=== PATIENT | female | born 1930 | race Caucasian/White ===

== ENCOUNTER 2019-11-03 19:35 | Inpatient (IN) | payer MEDICARE, OTHER ==
[~2019-11-03] VITALS: Ht 160 cm; Wt 97.5 kg
--- NOTE | 2019-11-03 19:40 | NUR ---
PT [id number] FROM HOME C/O SOB. PER RA, FAMILY NOTICED O2 SAT 84%,GAVE ALBUTEROL WITH NO RELIEF. RA PLACED PT ON 15L NONREBREATHER, O2 SAT 97%. INITIALLY, PT WAS PLACED ON 4L N/C PT SATTING 97%. PT TACHYPNEIC. PT CONNECTED TO THE EQUINE MANAGER AND POX.
--- NOTE | 2019-11-03 19:43 | NUR ---
CONTACTS: GRANDSON: ERAN, GRANDDAUGHTER: JASON: [phone] DAUGHTER: EQUATORIAL GUINEAN SPEAKING ONLY [phone]
[2019-11-03 20:21] LABS: BASOPHILS % (AUTO) 0.4 % (0.0-2.0); EOSINOPHILS % (AUTO) 0.3 % (0.0-6.0); HEMATOCRIT 34 % (33-45); HEMOGLOBIN 11.1 g/dL (11.5-14.8); LYMPHOCYTES # (AUTO) 0.5 /CMM (0.8-4.8); LYMPHOCYTES % (AUTO) 9.2 % (20.0-44.0); MEAN CORPUSCULAR HGB CONC 33 g/dl (31.0-36.0); MEAN CORPUSCULAR VOLUME 93 fL (82-100); MONOCYTES # (AUTO) 0.7 /CMM (0.1-1.30); MONOCYTES % (AUTO) 14.1 % (2.0-12.0); NEUTROPHILS # (AUTO) 3.8 /CMM (1.8-8.9); PLATELET COUNT (AUTO) 126 /CMM (150-450); RED BLOOD CELL COUNT(AUTO) 3.68 MIL/uL (4.0-5.2)
--- NOTE | 2019-11-03 20:27 | NUR ---
PT SATTING 85% W/ 4 L N/C. PT PLACED ON SIMPLE MASK 15 L. PT SATTING 96%. DR EZEQUIEL CR AWARE.
--- NOTE | 2019-11-03 20:32 | NUR ---
RT AT BEDSIDE FOR ABG
[2019-11-03 20:36] LABS: APPEARANCE,URINE Clear (CLEAR); BILIRUBIN,URINE Negative (NEGATIVE); BLOOD, URINE Negative Ery/uL (NEGATIVE); COLOR,URINE Yellow (YELLOW); KETONES,URINE Negative (NEGATIVE); LEUKOCYTE ESTERASE ,URINE Negative (NEGATIVE); NITRITE, URINE Negative (NEGATIVE); PROTEIN,URINE Negative (NEGATIVE); UGLUCOSE Negative (NEGATIVE); UROBILINOGEN,URINE 0.2 EU/dL (0.2)
[2019-11-03 20:41] LABS: ABG BASE EXCESS 19.7 mmol/L; ABG OXYGEN SATURATION 98.3 % (92.0-98.5); ABG PCO2 109.3 mmHg (35.0-45.0); ABG PH 7.289 (7.350-7.450); ABG PO2 147.8 mmHg (75.0-100.0); AaDO2 307.8 mmHg; COHb 1.1 % (0.5-1.5); MetHb 0.3 % (0.0-1.5); O2Hb 96.9 % (94.0-97.0); SITE, ABG Right Radial
--- NOTE | 2019-11-03 20:49 | NUR ---
CALLED RT FOR BIPAP PER DR. NIEVES'S ORDER
--- NOTE | 2019-11-03 21:01 | NUR ---
RT AT BEDSIDE
[2019-11-03 21:03] LABS: BILIRUBIN,DIRECT 1.1 mg/dL (0.0-0.2); BILIRUBIN,TOTAL 1.6 mg/dL (0.2-1.0)
[2019-11-03 21:04] LABS: ALANINE AMINOTRANSFERASE 18 U/L (12-78); ALBUMIN 2.9 g/dL (3.4-5.0); ALKALINE PHOSPHATASE 118 U/L (46-116); ASPARTATE AMINOTRANSFERASE 42 U/L (15-37); TOTAL PROTEIN, SERUM 7.5 g/dL (6.4-8.2)
[2019-11-03 21:05] LABS: CHLORIDE 81 mmol/L (98-107); POTASSIUM 5.7 mmol/L (3.5-5.1); SODIUM SERUM 124 mmol/L (136-145)
[2019-11-03 21:06] LABS: CALCIUM, SERUM 9.3 mg/dL (8.5-10.1); GLUCOSE 163 mg/dL (74-106); UREA NITROGEN, BLOOD 54 mg/dL (7-18)
[2019-11-03 21:08] LABS: CARBON DIOXIDE 46 mmol/L (21-32)
--- NOTE | 2019-11-03 21:25 | NUR ---
rt placed pt on bipap per md verbal order kari aware. sera s/t 16 20/5 60%. mask fitting well with minimal leak. pt rr increased to 35 at this time. spo2 88%, pt chronic co2 retainer with increased hco3. Addendum: 11/03/19 at 2127 by ODILIA ZHENG RT Amended: Links added.
--- NOTE | 2019-11-03 21:47 | NUR ---
ICU 258
[2019-11-03] MEDS ORDERED: CEFEPIME 1 GM in IV D5W 50 ML IV ONE (22:00)
[2019-11-03] MEDS ORDERED: IV NS 0.9% 500 ML BAG IV ONE (22:00)
[2019-11-03] MEDS ORDERED: CEFEPIME 1 GM VIAL ONE (22:23)
[2019-11-03] MEDS ORDERED: Z GUARD REMEDY 2 OZ OINT TP PRN (23:30)
[2019-11-03] MEDS ORDERED: MAGNESIUM HYDROXIDE 30 ML UDC PO PRN (23:30)
[2019-11-03] MEDS ORDERED: ONDANSETRON HCL/PF 4 MG/2 ML VIAL IVP PRN (23:30)
[2019-11-03] MEDS ORDERED: ACETAMINOPHEN 325 MG TABLET PO PRN (23:30)
[2019-11-04] VITALS (44 sets, daily range): BP systolic 36–181; BP diastolic 17–104
[2019-11-04] MEDS ORDERED: FUROSEMIDE 40 MG/4 ML VIAL IV ONE
[2019-11-04] MEDS ORDERED: OMEP20CA15 GT (00:23)
[2019-11-04] MEDS ORDERED: MEMA10TA GT (00:24)
[2019-11-04] MEDS ORDERED: ISOS20TA8 GT (00:25)
[2019-11-04] MEDS ORDERED: METO25TA6 GT (00:26)
[2019-11-04] MEDS ORDERED: FURO40TA5 GT (00:27)
[2019-11-04] MEDS ORDERED: APIX5TAB GT (00:28)
--- NOTE | 2019-11-04 00:50 | NUR ---
RN NOTE PT TRANSFERRED FROM ER TO ROOM VIA RNEY UNDER ACLS PROTOCOL. PT ON CONTINUOUS BIPAP. RT AT BEDSIDE. PT IS NON VERBAL BUT RESPONSIVE TO VERBAL AND TACTILE STIMULI. PLACED ON BEDSIDE MONITOR SHOWING A FIB. MIDLINE ON RIGHT UPPER ARM PATENT AND FLUSHING WELL. COMPREHENSIVE PHYSICAL ASSESSMENT COMPLETED. CALL LIGHT WITHIN REACH, SAFETY MEASURES IN PLACE, WILL MONITOR PATIENT. Addendum: 11/04/19 at 0130 by ROBBI CORTEZ RN ERROR. MID LINE ON LEFT UPPER ARM.
--- NOTE | 2019-11-04 01:11 | NUR ---
PT TRANSFERRED TO ICU VIA ACLS PROTOCOL
--- NOTE | 2019-11-04 01:45 | NUR ---
RN NOTE ADVANCED DIRECTIVE NOT ON FILE. SPOKE TO DAUGHTER BRYANNA TSANG . WHO STATES SHE WISHES PT TO BE FULL CODE. VERIFIED AND WITNESSED BY SUPERVISOR CUSTOMER SERVICES RENEE.
--- NOTE | 2019-11-04 01:50 | NUR ---
RN NOTE PAGED DNP EMILY REGARDING LOW SODIUM LEVEL.
--- NOTE | 2019-11-04 02:48 | NUR ---
RN NOTES CODY DIAZ CALLED BACK AND INFORMED REGARDING NA 124, NNO. NEW ORDER TO INSERT PAVON AND MEASURE URINE OUTPUT NOTED AND CARRIED OUT ORDER.
--- NOTE | 2019-11-04 03:15 | NUR ---
RN NOTE INSERTED 16FR PAVON CATHETER. PT TOLERATED WELL.
[2019-11-04] MEDS ORDERED: METOPROLOL TARTRATE 25 MG TABLET GT SCH (04:00)
[2019-11-04] MEDS ORDERED: APIXABAN 5 MG TABLET GT SCH (04:00)
[2019-11-04 04:22] LABS: BASOPHILS % (AUTO) 0.2 % (0.0-2.0); HEMATOCRIT 33 % (33-45); HEMOGLOBIN 10.7 g/dL (11.5-14.8); LYMPHOCYTES # (AUTO) 0.5 /CMM (0.8-4.8); LYMPHOCYTES % (AUTO) 6.8 % (20.0-44.0); MEAN CORPUSCULAR HGB CONC 33 g/dl (31.0-36.0); MEAN CORPUSCULAR VOLUME 93 fL (82-100); MONOCYTES # (AUTO) 1.2 /CMM (0.1-1.30); NEUTROPHILS # (AUTO) 6.2 /CMM (1.8-8.9); PLATELET COUNT (AUTO) 109 /CMM (150-450); RED BLOOD CELL COUNT(AUTO) 3.53 MIL/uL (4.0-5.2); WHITE BLOOD COUNT (AUTO) 7.9 K/uL (4.3-11.0)
[2019-11-04 04:33] LABS: ALBUMIN 2.7 g/dL (3.4-5.0); BILIRUBIN,TOTAL 1.8 mg/dL (0.2-1.0); CALCIUM, SERUM 8.7 mg/dL (8.5-10.1); MAGNESIUM 2.7 mg/dL (1.8-2.4); PHOSPHORUS 4.5 mg/dL (2.5-4.9); POTASSIUM 4.7 mmol/L (3.5-5.1); TOTAL PROTEIN, SERUM 6.8 g/dL (6.4-8.2)
[2019-11-04 04:40] LABS: THYROID STIMULATING HORMONE 2.259 uIU/mL (0.358-3.74)
--- NOTE | 2019-11-04 04:58 | NUR ---
RN NOTE RECEIVED ALERT FOR CRITICAL LAB VALUE CO2 48. INCREASED FROM 46. NOTIFIED DNP EMILY.
--- NOTE | 2019-11-04 05:04 | NUR ---
RN NOTE DNP NOTIFIED OF CO2 RESULT. PROTOCL INITIATED. PT STILL ON CONTINUOUS BIPAP. RT AT BEDSIDE.
[2019-11-04 05:15] LABS: LYMPHOCYTES % (MANUAL) 5 % (16-48); NEUTROPHILS % (MANUAL) 88 (42-76)
[2019-11-04 05:16] LABS: MONOCYTES % (MANUAL) 7 % (0-11.0)
[2019-11-04 05:17] LABS: ABG BASE EXCESS 20.4 mmol/L; ABG OXYGEN SATURATION 95.4 % (92.0-98.5); ABG PCO2 74.9 mmHg (35.0-45.0); ABG PH 7.429 (7.350-7.450); ABG PO2 76.9 mmHg (75.0-100.0); AaDO2 414.9 mmHg; COHb 0.9 % (0.5-1.5); MetHb 0.3 % (0.0-1.5); O2Hb 94.3 % (94.0-97.0); SITE, ABG Left Brachial
--- NOTE | 2019-11-04 05:18 | NUR ---
ABG DONE. NOTIFIED RN WITH THE RESULT.
--- NOTE | 2019-11-04 07:01 | NUR ---
RN CLOSING NOTE PATIENT IN BED IN SEMI BROWN'S POSITION WITH CONTINUOUS BIPAP ORDERED. SETTINGS: 20/5, RATE 16, FI02 80%. MD AWARE OF CURRENT ABG RESULT WITH NO NEW ORDERS. TELE MONITOR SHOWS A FIB WITH HEART RATE 73. PAVON CATHETER IN PLACE DRAINING CLEAR YELLOW URINE. MAINTAINED NPO STATUS. GT CLAMPED. VOLODYMYR MIDLINE AND RIGHT THUMB 22G IV PATENT WITHOUT SIGNS OF COMPLICATIONS AT SITES. VITAL SIGNS WNL, CALL LIGHT WITHIN REACH, SAFETY MEASURES IN PLACE, WILL ENDORSE TO MORNING RN FOR CONTINUATION OF CARE.
--- NOTE | 2019-11-04 07:50 | NUR ---
RN OPENING NOTE: RECEIVED PATIENT IN BED THIS MORNING. PATIENT ONLY OPENED EYES TO VIGOROUS TACTILE STIMULI, UNABLE TO ANSWER QUESTIONS. PATIENT IS ON CONTINUOUS BIPAP, TOLERATING SETTINGS WELL, NO SIGNS OF ACUTE RESPIRATORY DISTRESS NOTED. BEDSIDE MONITOR SHOWS CONTROLLED AFIB IN THE 70S. NO SIGNS OF ACUTE DISTRESS NOTED AT THIS TIME. EDEMA NOTED ON BUE AND BLE. #22 LEFT THUMB, MIDLINE AT PHIL, C/D/I, FLUSHING WELL, NO SIGNS OF COMPLICATIONS NOTED. PAVON CATHETER, DRAINING CLEAR YELLOW URINE. GT CLAMPED D/T NPO STATUS. SAFETY MEASURES IMPLEMENTED, BED IN LOWEST POSITION, LOCKED, CALL LIGHT WITHIN REACH. WILL CONTINUE TO MONITOR PATIENT FOR CHANGES.
--- NOTE | 2019-11-04 08:25 | NUR ---
PER ARIANE ORNELAS TO GIVE MEDS VIA GT.
[2019-11-04] MEDS: PANTOPRAZOLE 40 MG VIAL IV SCH (08:28)
[2019-11-04] MEDS: ISOSORBIDE DINITRATE (20MG) 20 MG TABLET GT SCH ×2 (08:28→17:18)
--- NOTE | 2019-11-04 09:30 | NUR ---
RT PATIENT WAS ORALLY INTUBATED BY ANESTHESIA WITH A 7.5 ETT SECURED AT 23CM AT THE LIP. PATIENT PLACED ON [facility] VENT WITH SETTINGS SET BY DR LUO. AC 22, VT 450, 100% +5. PEAK PRESSURES NOTED TO BE ELEVATED. DR LUO AWARE. AMBU BAG AT HOB. Addendum: 11/04/19 at 1203 by PORTIA WALLACE RT Amended: Links added.
[2019-11-04] MEDS ORDERED: NOREPINEPHRINE 8 MG in IV NS 0.9% 242 ML IV PRN (10:30)
[2019-11-04] MEDS ORDERED: IPRATROPIUM/ALBUTEROL INHALER IH ONE (10:30)
[2019-11-04] MEDS ORDERED: EPHEDRINE SULFATE IV 50MG VIAL ONE (10:32)
[2019-11-04] MEDS ORDERED: EPINEPHRINE (1:1000) 1 MG/ML AMPUL ONE (10:42)
[2019-11-04] MEDS ORDERED: EPHEDRINE SULFATE IV 50MG VIAL IV ONE ×2 (11:00→12:21)
[2019-11-04] MEDS ORDERED: DEXAMETHASONE SOD PHOSPHATE 4 MG/ML VIAL IV ONE (11:30)
[2019-11-04] MEDS: ALBUTEROL HALF STRENGTH 1.25 MG/3 ML VIAL.NEB NEB SCH ×2 (11:56→11:57)
[2019-11-04] MEDS ORDERED: IPRATROPIUM/ALBUTEROL INHALER IH SCH (12:00)
[2019-11-04] MEDS: CEFEPIME 2 GM in IV D5W 100 ML IV SCH ×2 (12:13→23:26)
[2019-11-04] MEDS ORDERED: ATROPINE SULFATE 1 MG/10 ML DISP.SYRIN IV ONE (12:21)
[2019-11-04] MEDS ORDERED: ETOMIDATE 2 MG/ML VIAL IV ONE (12:21)
[2019-11-04] MEDS ORDERED: ROCURONIUM BROMIDE 50 MG/5 ML IV ONE (12:21)
[2019-11-04] MEDS: PROPOFOL 100 ML IV PRN ×2 (12:33→17:26)
[2019-11-04 12:43] LABS: ABG BASE EXCESS 13.5 mmol/L; ABG OXYGEN SATURATION 91.4 % (92.0-98.5); ABG PCO2 45.6 mmHg (35.0-45.0); ABG PH 7.535 (7.350-7.450); ABG PO2 55.4 mmHg (75.0-100.0); COHb 0.5 % (0.5-1.5); MetHb 0.3 % (0.0-1.5); O2Hb 90.7 % (94.0-97.0); SITE, ABG A-Line
--- NOTE | 2019-11-04 13:15 | NUR ---
GAVE REPORT TO MARIIA SANTOS FOR CONTINUITY OF CARE.
[2019-11-04] MEDS ORDERED: ALBUTEROL SULFATE INH 18 GM HFA.AER.AD IH PRN (14:00)
[2019-11-04 15:10] LABS: ABG OXYGEN SATURATION 90.3 % (92.0-98.5); ABG PCO2 40.2 mmHg (35.0-45.0); ABG PO2 50.2 mmHg (75.0-100.0); AaDO2 622.6 mmHg; COHb 0.6 % (0.5-1.5); MetHb 0.2 % (0.0-1.5); O2Hb 89.6 % (94.0-97.0); SITE, ABG A-Line
--- NOTE | 2019-11-04 15:30 | NUR ---
RN NOTES FAXED AUTHORIZATION FOR RELEASE OF INFORMATION TO [facility] AND [facility]. OBTAINED CONSENT FOR THE RELEASE OF INFORMATION FROM ERAN (SOLO) CONSENT VERIFIED WITH MARIIA FORTE
[2019-11-04] MEDS: methylPREDNISolone SOD SUCC 40 MG/ML VIAL IV SCH ×2 (15:37→21:01)
--- NOTE | 2019-11-04 19:40 | NUR ---
RN NOTES RECEIVED PATIENT WITH ETT AND 7.5 AND 23CM POSITION AT 23 CM AT LIPLINE. WITH VENT SETTING AC 22 TV 400 FIO2 100% AND PEEP 12. TOLERATED WELL SATURATION 100%. SUCTION WITH THICK YELLOW WITH BLOODY SECRETION TELE MONITOR REVEALS AFIB WITH BBB HR 104. NO FACIAL COMPLAIN OF PAIN. AFEBRILE. WITH MIAH CONNECTED ON RIGHT ARTERIAL CALIBRATED AND LEVELLED. PT IS SEDATED WITH DIPRIVAN. NO PRESSOR AT THIS TIME. WITH GT CLAMPED. IV SITE ON VOLODYMYR MIDLINE RIGHT THUMB G 22 AND PHIL TLC. PROPOFOL @ 20 MCG/KG/MIN TOLERATED WELL. PATIENT HAS PAVON CATH DRAINED VIA GRAVITY KEPT OFF FROM THE FLOOR. PEDAL PULSES WEAK RADIAL PULSE PALPABLE. WILL CLOSELY MONITOR.
[2019-11-04 20:04] LABS: ABG BASE EXCESS 11.7 mmol/L; ABG OXYGEN SATURATION 96.1 % (92.0-98.5); ABG PH 7.603 (7.350-7.450); ABG PO2 76.4 mmHg (75.0-100.0); AaDO2 601.6 mmHg; COHb 0.2 % (0.5-1.5); MetHb 0.4 % (0.0-1.5); O2Hb 95.5 % (94.0-97.0); PEEP,BG 12 cm H2O; SITE, ABG A-Line
--- NOTE | 2019-11-04 20:13 | NUR ---
ABG DONE. NOTIFIED RN WITH THE RESULT.
--- NOTE | 2019-11-04 21:25 | NUR ---
RN NOTES ABG RESULT TO DR. CEJA ([facility]) PH - [phone] PCO3 - 35 PO2 - 76.4 HCO3 - 33.8 NEW ORDER RECEIVED TO CHANGE AC TO 18 NOTED AND CARRIED OUT ORDER. RT MADE AWARE AND CHANGED VENT SETTING.
--- NOTE | 2019-11-04 21:26 | NUR ---
CHANGED RATE TO [address] CEJA. NOTIFIED RN.
[2019-11-04] MEDS ORDERED: CEFEPIME 1 GM in IV NS 0.9% 50 ML IV SCH (22:00)
[2019-11-05] VITALS (33 sets, daily range): BP systolic 89–163; BP diastolic 44–134
[2019-11-05] MEDS: PROPOFOL 100 ML IV PRN ×2 (03:26→15:11)
[2019-11-05 04:35] LABS: BASOPHILS % (AUTO) 0.1 % (0.0-2.0); HEMATOCRIT 31 % (33-45); HEMOGLOBIN 10.5 g/dL (11.5-14.8); LYMPHOCYTES # (AUTO) 0.2 /CMM (0.8-4.8); LYMPHOCYTES % (AUTO) 2.7 % (20.0-44.0); MEAN CORPUSCULAR HGB CONC 34 g/dl (31.0-36.0); MEAN CORPUSCULAR VOLUME 91 fL (82-100); MONOCYTES # (AUTO) 0.4 /CMM (0.1-1.30); MONOCYTES % (AUTO) 4.9 % (2.0-12.0); NEUTROPHILS # (AUTO) 8.3 /CMM (1.8-8.9); NEUTROPHILS % (AUTO) 92.3 % (43.0-81.0); PLATELET COUNT (AUTO) 115 /CMM (150-450); RED BLOOD CELL COUNT(AUTO) 3.41 MIL/uL (4.0-5.2)
[2019-11-05 05:04] LABS: ALANINE AMINOTRANSFERASE 18 U/L (12-78); ALBUMIN 2.4 g/dL (3.4-5.0); ALKALINE PHOSPHATASE 90 U/L (46-116); ASPARTATE AMINOTRANSFERASE 46 U/L (15-37); BILIRUBIN,TOTAL 2.6 mg/dL (0.2-1.0); CHLORIDE 82 mmol/L (98-107); CREATININE 1.4 mg/dL (0.6-1.3); GLUCOSE 173 mg/dL (74-106); MAGNESIUM 2.9 mg/dL (1.8-2.4); POTASSIUM 4.7 mmol/L (3.5-5.1); SODIUM SERUM 127 mmol/L (136-145); TOTAL PROTEIN, SERUM 6.3 g/dL (6.4-8.2); UREA NITROGEN, BLOOD 61 mg/dL (7-18)
[2019-11-05 05:13] LABS: CARBON DIOXIDE 42 mmol/L (21-32)
[2019-11-05 05:19] LABS: CREATINE KINASE, TOTAL 70 U/L (26-192); THYROID STIMULATING HORMONE 1.153 uIU/mL (0.358-3.74); URIC ACID 11.2 mg/dL (2.6-7.2)
[2019-11-05] MEDS: methylPREDNISolone SOD SUCC 40 MG/ML VIAL IV SCH ×3 (05:47→21:40)
--- NOTE | 2019-11-05 06:58 | NUR ---
RN NOTES PATIENT REMAINED SEDATED WITH DIPRIVAN. AFEBRILE. ETT AND VENT SETTING TOLERATED WELL. NO ACUTE RESPIRATORY DISTRESS. SATURATION BETWEEN 98-100%. SUCTION FREQUENTLY WITH THICK BLOODY SECRETION. TELE MONITOR REVEALS AFIB WITH BBB AND PVC'S. GT CLAMPED INTACT AND PATENT WITH SMALL AMT,OF LIGHT GREENISH COLOR RESIDUAL. VSS. IV SITE ON VOLODYMYR MIDLINE AND PHIL PICC LINE ARE INTACT AND PATENT. RT RADIAL ARTERY FOR A- LINE. CALIBRATED AND LEVELED. CONTINUE WITH PROPOFOL TITRATED ORDERED. BED BATH DONE AND TOLERATED WELL. T/R Q2H AND PRN. KEPT PT CLEAN AND DRY. WILL CONT. TO POC. TROPONIN 1.117 AND CO2 [address] WATTS NNO.
--- NOTE | 2019-11-05 08:04 | NUR ---
COAL WHEELER OPENING NOTES RECEIVED PT IN BED.OPEN EYES. LEGALLY BLIND. ALERTX4.FC 150 CC.BED PT IS IN BI-PAP FIO85 RATE 12. RUNNING DRIP [id number] MCQ. BED IS IN LOWEST POSITION. CALL LIGHT WITHIN REACH. SAFETY MEASUREMENTS ARE IMPLEMENTED. RAILS UP X2. WILL CONTINUE TO MONITOR. Addendum: 11/05/19 at 1040 by SAÚL ESCOBAR RN AWAKE .ALERT AND ORIENTED X0
--- NOTE | 2019-11-05 08:13 | NUR ---
WOUND CARE CONSULT: REVIEWED CHART, NURSING DOCUMENTATION AND PHOTOS WHICH SHOW CALLUSED HEELS, SKIN DISCOLORATION AND RASH TO PERINEUM, BUTTOCK AND ABDOMINAL/GROIN FOLDS, PRESENT ON ADMISSION. RECOMMENDATIONS MADE FOR SKIN PROTECTION AND SKIN CARE. DISCUSSED WITH NURSING STAFF. FIRST STEP LOW AIRLOSS MATTRESS ON ORDER. WILL SEE PRN. IN AGREEMENT WITH PLAN OF CARE.
--- NOTE | 2019-11-05 08:41 | NUR ---
HONING MACHINE SET UP OPERATOR TOOL NOTES PATIENT IS HAVING FACIAL GRIMACING AND FOCAL SEIZURE. PER DR LUO GIVE PATIENT 1 MG ATIVAN IV PUSH ONCE.
[2019-11-05] MEDS: ISOSORBIDE DINITRATE (20MG) 20 MG TABLET GT SCH ×2 (08:55→16:21)
[2019-11-05 08:58] LABS: ABG BASE EXCESS 16.7 mmol/L; ABG PH 7.588 (7.350-7.450); ABG PO2 91.7 mmHg (75.0-100.0); AaDO2 578.3 mmHg; COHb 0.5 % (0.5-1.5); MetHb 0.2 % (0.0-1.5); O2Hb 97.3 % (94.0-97.0); PEEP,BG 12 cm H2O; SITE, ABG A-Line; VT, ABG 400 mL
[2019-11-05] MEDS ORDERED: LORAZEPAM INJ 2 MG/ML VIAL IV ONE (09:00)
[2019-11-05] MEDS: PANTOPRAZOLE 40 MG VIAL IV SCH (09:14)
[2019-11-05] MEDS: CLOTRIMAZOLE 1% 15 GM TUBE TP SCH ×2 (09:15→17:35)
--- NOTE | 2019-11-05 09:58 | NUR ---
MOWER MECHANIC NOTES REPORT GIVEN TO ELISABETH CHIANG FOR BRENDA.
[2019-11-05] MEDS ORDERED: LORAZEPAM INJ 2 MG/ML VIAL IVP PRN (10:00)
--- NOTE | 2019-11-05 10:00 | NUR ---
RN NOTES RECEIVED PT ON BED, INTUBATED, TOLERATING CURRENT VENT SETTING WELL, O2 SAT IN HIGH 90'S , SEDATED, ON DIPRIVAN AT 10MCG/KG/ MIN , OPENS EYES AT TIMES, ON TELE A.FIB WITH BBB, HR IN 90'S , PAVON DRINING TO GRAVITY, GT CLAMPED , L UPPER ARM MIDLINE AND RIGHT UPPER ARM PICC LINE SITE CLEAN, DRY AND INTACT, A-LINE SITE INTACT, SR UP x3, CALL LIGHT WITHIN EASY REACH, BED LOCKED AND IN LOWEST POSITION, SR UP x3, CALL LIGHT WITHIN EASY REACH, CONTINUE TO MONITOR .
--- NOTE | 2019-11-05 10:00 | NUR ---
RN NOTES FACIAL TWITCHING NOTED, MD AWARE PER MORNING REPORT .
--- NOTE | 2019-11-05 10:05 | NUR ---
ADOBE LAYER NOTES RN PERFORMED COVID TEST . COVID TEST IS PENDING
--- NOTE | 2019-11-05 10:06 | NUR ---
RT NOTE VENT CHANGES MADE POST ABG PER DR FALLEG RATE DOWN TO 12 AND FIO2 TITRATED DOWN TO 85%. PT TOLERATING WELL. WILL CONTINUE TO MONITOR. Addendum: 11/05/19 at 1007 by ROBBI GONZALES RT Amended: Links added.
[2019-11-05] MEDS: CEFEPIME 2 GM in IV D5W 100 ML IV SCH ×2 (10:50→23:08)
[2019-11-05] MEDS: IV NS 0.9% 1,000 ML IV PRN ×2 (11:08→20:03)
[2019-11-05 14:03] LABS: APPEARANCE,URINE SL CLOUDY (CLEAR); BILIRUBIN,URINE NEGATIVE (NEGATIVE); BLOOD, URINE NEGATIVE Ery/uL (NEGATIVE); COLOR,URINE DARK YELLO (YELLOW); KETONES,URINE TRACE (NEGATIVE); LEUKOCYTE ESTERASE ,URINE TRACE (NEGATIVE); NITRITE, URINE NEGATIVE (NEGATIVE); PROTEIN,URINE TRACE mg/dl (NEGATIVE); UGLUCOSE NEGATIVE (NEGATIVE); UROBILINOGEN,URINE 0.2 EU/dL (0.2)
[2019-11-05 14:06] LABS: OSMOLALITY,URINE 357 mOS/kg (340-1090)
[2019-11-05 14:10] LABS: CREATININE, URINE 42.8 MG/DL (30.0-125.0); URINE SODIUM, RANDOM < 5 mmol/l (40-220); URINE TOTAL PROTEIN 27.2 mg/dL (0-11.9)
--- NOTE | 2019-11-05 14:35 | NUR ---
RN NOTES VSS STABLE , PROPOFOL AT 5MCG/KG/MIN RUNNING , ORAL AND ET SUCTIONING DONE , CONTINUE TO MONITOR .
[2019-11-05 14:45] LABS: BACTERIA,URINE 1+ /HPF (None Seen); RBC,URINE 0-2 /HPF (0-2); SQUAMOUS EPITHELIAL CELL,UR Few /HPF (None Seen)
[2019-11-05 14:46] LABS: YEAST,URINE Moderate /HPF (None Seen)
[2019-11-05 14:52] LABS: EOSINOPHIL,URINE None Seen
--- NOTE | 2019-11-05 16:00 | NUR ---
RN NOTES EEG DONE BY OPERATIONS TECH, PT STABLE , CONTINUE TO MONITOR.
--- NOTE | 2019-11-05 18:44 | NUR ---
RN NOTES PT REMAINS INTUBATED, AND SEDATED, ON DIPRIVAN AT 5MCG/KG/MIN, TOLERATING CURRENT VENT SETTING WELL, O2 SAT IN HIGH 90'S , TOTAL URINE OUT PUT 150CC ON THIS SHIFT, DR ZACH MARK, PT ON NS AT 125CC/HR , A-LINE INTACT, SR UP x3, CALL LIGHT WITHIN EASY REACH, BED LOCKED AND IN LOWEST POSITION, WILL ENDORSE TO SERVICE RESTORER EMERGENCY NURSE FOR CONTINUITY OF CARE.
--- NOTE | 2019-11-05 20:00 | NUR ---
RN NOTES PATIENT IS ORALLY INTUBATED WITH ETT 7.5 AND POSITION @ 23 CM LIPLINE. WITH VENT SETTING AC 12 TV 400 AND FIO2 85% PEEP 12. ABLE TO OPEN EYES NOT FOLLOWING COMMAND. PATIENT STILL IN LOW DOSE OF SEDATION DIPRIVAN @ 5 MCG/KG/MIN. NO PRESSORS AT THIS TIME VSS. TELE MONITOR WAS AFIBW/BBB AND PVC'S. GT CLAMPED PATENCY CHECKED, INTACT AND PATENT WITH MINIMAL RESIDUAL. IV SITE ON VOLODYMYR MIDLINE AND PHIL TLC AND RIGHT RADIAL CONNECTED IN A-LINE CALIBRATED AND LEVELED. . PT STILL PENDING FOR COVID RESULT. STRICTLY ON ISOLATION. KEPT PT CLEAN AND DRY WILL CONTINUE TO MONITOR.
--- NOTE | 2019-11-05 20:16 | NUR ---
RT NOTE RECEIVED PT INTUBATED WITH 7.5 ETT SECURED AT 23CM AT THE LIP. PATIENT HAS SOME BLOODY SECRETIONS WHEN SUCTIONED, MINIMAL. AMBU BAG AT [facility]. ALARMS ON AND AUDIBLE. VENT PLUGGED INTO RED OUTLET. WILL CONTINUE TO MONITOR PT T/O SHIFT. Addendum: 11/05/19 at 2016 by MICHAEL ARROYO RT Amended: Links added.
[2019-11-06] VITALS (24 sets, daily range): BP systolic 105–138; BP diastolic 51–86
[2019-11-06] MEDS: PROPOFOL 100 ML IV PRN (03:30)
[2019-11-06 04:10] LABS: BASOPHILS % (AUTO) 0.1 % (0.0-2.0); HEMATOCRIT 31 % (33-45); HEMOGLOBIN 10.2 g/dL (11.5-14.8); LYMPHOCYTES # (AUTO) 0.4 /CMM (0.8-4.8); LYMPHOCYTES % (AUTO) 6.2 % (20.0-44.0); MEAN CORPUSCULAR HGB CONC 33 g/dl (31.0-36.0); MEAN CORPUSCULAR VOLUME 92 fL (82-100); MONOCYTES # (AUTO) 0.4 /CMM (0.1-1.30); NEUTROPHILS # (AUTO) 6.3 /CMM (1.8-8.9); NEUTROPHILS % (AUTO) 88.7 % (43.0-81.0); PLATELET COUNT (AUTO) 106 /CMM (150-450); RED BLOOD CELL COUNT(AUTO) 3.35 MIL/uL (4.0-5.2); WHITE BLOOD COUNT (AUTO) 7.1 K/uL (4.3-11.0)
[2019-11-06 04:24] LABS: CREATINE KINASE, TOTAL 58 U/L (26-192)
[2019-11-06 04:28] LABS: ALANINE AMINOTRANSFERASE 19 U/L (12-78); ALBUMIN 2.4 g/dL (3.4-5.0); ALKALINE PHOSPHATASE 86 U/L (46-116); ASPARTATE AMINOTRANSFERASE 51 U/L (15-37); BILIRUBIN,TOTAL 2.5 mg/dL (0.2-1.0); CALCIUM, SERUM 8.9 mg/dL (8.5-10.1); CHLORIDE 87 mmol/L (98-107); CREATININE 1.5 mg/dL (0.6-1.3); GLUCOSE 159 mg/dL (74-106); MAGNESIUM 2.9 mg/dL (1.8-2.4); PHOSPHORUS 4.3 mg/dL (2.5-4.9); POTASSIUM 4.8 mmol/L (3.5-5.1); SODIUM SERUM 128 mmol/L (136-145); TOTAL PROTEIN, SERUM 6.3 g/dL (6.4-8.2); UREA NITROGEN, BLOOD 63 mg/dL (7-18)
[2019-11-06 04:40] LABS: CARBON DIOXIDE 40 mmol/L (21-32)
[2019-11-06] MEDS: IV NS 0.9% 1,000 ML IV PRN ×2 (04:40→15:49)
[2019-11-06] MEDS: methylPREDNISolone SOD SUCC 40 MG/ML VIAL IV SCH ×3 (05:47→21:01)
--- NOTE | 2019-11-06 06:00 | NUR ---
RN NOTES TOÑITO FROM LAB CALLED AND REPORTED THAT PATIENT IS NEGATIVE FOR COVID 19. CHARGE NURSE MADE AWARE AND
--- NOTE | 2019-11-06 07:00 | NUR ---
RN NOTES RECEIVED [T ON BED, ORALLY INTUBATED, DOES NOT FOLLOW COMMAND, SEDATED, EYES OPEN AT TIMES , WITH ETT 7.5 AND POSITION @ 23 CM LIP LINE. WITH VENT SETTING AC 12 TV 400 AND FIO2 60% PEEP 12. ON DIPRIVAN @ 5 MCG/KG/MIN. ON TELE, A.FIB W/BBB AND PVC'S. HR IN 80'S , GT CLAMPED PATENCY CHECKED, INTACT AND PATENT WITH MINIMAL RESIDUAL. VOLODYMYR MIDLINE AND PHIL TLC PICC LINE SITES CLEAN, DRY AND INTACT, AND RIGHT RADIAL CONNECTED IN A-LINE CALIBRATED AND LEVELED. SR UP x3, CALL LIGHT WITHIN EASY REACH, BED LOCKED AND IN LOWEST POSITION, KEPT PT CLEAN AND DRY, WILL CONTINUE TO MONITOR.
--- NOTE | 2019-11-06 07:00 | NUR ---
RN NOTES PATIENT REMAINED STABLE ON ETT AND VENT SETTING TOLERATED WELL ON FIO2 60% TOLERATED WELL. MUCH LESSER BLOODY THICK SECRETION NOTED DURING SUCTIONING PILY ORAL AND ETT. AFEBRILE. VSS IV SITE INTACT AND PATENT. ART LINE ON RT. RADIAL ZEROED , CALIBRATED AND LEVELED. KEPT PT CLEAN AND DRY. TURNED AND REPOSITIONED MUCH POSSIBLE WHEN GOING TO PATIENT ROOM. ALL MEDICINE ADMINISTERED ORDERED AND TOLERATED WELL. ENDORSED CONTINUITY OF CARE TO AM NURSE.
[2019-11-06 07:52] LABS: ABG BASE EXCESS 13.3 mmol/L; ABG OXYGEN SATURATION 98.7 % (92.0-98.5); ABG PCO2 50.6 mmHg (35.0-45.0); ABG PH 7.496 (7.350-7.450); ABG PO2 150.1 mmHg (75.0-100.0); AaDO2 403.5 mmHg; COHb 0.3 % (0.5-1.5); O2Hb 98.4 % (94.0-97.0); PEEP,BG 12 cm H2O; SITE, ABG A-Line; VT, ABG 400 mL
[2019-11-06] MEDS: PANTOPRAZOLE 40 MG VIAL IV SCH (08:27)
[2019-11-06] MEDS: ISOSORBIDE DINITRATE (20MG) 20 MG TABLET GT SCH ×2 (08:28→16:29)
[2019-11-06] MEDS: CLOTRIMAZOLE 1% 15 GM TUBE TP SCH ×2 (08:28→16:25)
--- NOTE | 2019-11-06 09:17 | NUR ---
RN NOTES DR THOMAS OFFICE NOITFED REGARDING CONSULTATION, SPOKEN TO BENJY AT THE OFFICE .
[2019-11-06] MEDS: APIXABAN 5 MG TABLET GT SCH ×2 (09:28→16:28)
[2019-11-06] MEDS ORDERED: VALPROATE 1,000 MG in IV NS 0.9% 100 ML IV STA (09:47)
[2019-11-06] MEDS: CEFEPIME 2 GM in IV D5W 100 ML IV SCH ×2 (11:29→23:00)
[2019-11-06] MEDS: VALPROATE 500 MG in IV NS 0.9% 100 ML IV SCH ×2 (12:44→21:00)
--- NOTE | 2019-11-06 13:00 | NUR ---
RN NOTES CT SCAN DONE, VSS STABLE , CONTINUE TO MONITOR .
--- NOTE | 2019-11-06 18:21 | NUR ---
RN NOTES PATIENT REMAINED STABLE, STILL INTUBATED AND SEDATED, TOLERAING FIO2 AT 50% WELL, VSS STABLE. ON DIPRIVAN AT10 MCG/KG/MIN, A- LINE , PICC LINE AND MIDLINE SITES CLEAN ,DRY AND INTACT, KEPT PT CLEAN AND DRY. TURNED AND REPOSITIONED , ALL MEDICINE ADMINISTERED ORDERED AND TOLERATED WELL. WILL ENDORSE TO METER TESTER POLYPHASE NURSE FOR CONTINUITY OF CARE.
--- NOTE | 2019-11-06 20:00 | NUR ---
Received patient sedated on Diprivan gtt via PHIL PICC Line.Intubated to mechanical vent on full vent support.Vent settings well tolerated.Hypothermic 94.1.Skin cold to touch.Kept warm with Parish hugger.Afib controlled 80's.Normotensive with Arterial line and NIBP readings .Kept NPO with GT clamped.Maintenance IVF Infusing via VOLODYMYR ML No acute distress noted.Turned and repositioned.Continue monitoring.
[2019-11-06] MEDS: FLUCONAZOLE (100 MG) 100 MG TABLET PO SCH (21:00)
[2019-11-07] VITALS (29 sets, daily range): BP systolic 90–141; BP diastolic 46–98
--- NOTE | 2019-11-07 | NUR ---
Patient remains sedated.VSS.No acute distress noted.Turned and repositioned.
[2019-11-07] MEDS: PROPOFOL 100 ML IV PRN (00:10)
[2019-11-07] MEDS: IV NS 0.9% 1,000 ML IV PRN ×3 (01:21→18:53)
[2019-11-07 04:22] LABS: BASOPHILS % (AUTO) 0.1 % (0.0-2.0); HEMATOCRIT 31 % (33-45); HEMOGLOBIN 10.2 g/dL (11.5-14.8); LYMPHOCYTES # (AUTO) 0.3 /CMM (0.8-4.8); LYMPHOCYTES % (AUTO) 6.6 % (20.0-44.0); MEAN CORPUSCULAR HGB CONC 33 g/dl (31.0-36.0); MEAN CORPUSCULAR VOLUME 91 fL (82-100); MONOCYTES # (AUTO) 0.2 /CMM (0.1-1.30); MONOCYTES % (AUTO) 4.8 % (2.0-12.0); NEUTROPHILS # (AUTO) 4.5 /CMM (1.8-8.9); NEUTROPHILS % (AUTO) 88.5 % (43.0-81.0); PLATELET COUNT (AUTO) 97 /CMM (150-450); RED BLOOD CELL COUNT(AUTO) 3.39 MIL/uL (4.0-5.2); WHITE BLOOD COUNT (AUTO) 5.1 K/uL (4.3-11.0)
[2019-11-07 04:35] LABS: CALCIUM, SERUM 8.9 mg/dL (8.5-10.1); CARBON DIOXIDE 37 mmol/L (21-32); CHLORIDE 87 mmol/L (98-107); CREATININE 1.5 mg/dL (0.6-1.3); GLUCOSE 140 mg/dL (74-106); PHOSPHORUS 4.3 mg/dL (2.5-4.9); POTASSIUM 4.3 mmol/L (3.5-5.1); SODIUM SERUM 129 mmol/L (136-145); UREA NITROGEN, BLOOD 69 mg/dL (7-18)
[2019-11-07] MEDS: methylPREDNISolone SOD SUCC 40 MG/ML VIAL IV SCH ×3 (05:18→20:34)
[2019-11-07] MEDS: VALPROATE 500 MG in IV NS 0.9% 100 ML IV SCH ×3 (05:18→20:33)
[2019-11-07 06:15] LABS: NEUTROPHILS % (MANUAL) 93 (42-76)
[2019-11-07 06:16] LABS: LYMPHOCYTES % (MANUAL) 4 % (16-48); MONOCYTES % (MANUAL) 3 % (0-11.0)
--- NOTE | 2019-11-07 07:25 | NUR ---
Patient resting no significant change noted during the shift.VSS stable.Tolerating vent settings.Personal hygiene rendered.Was turned and repositioned Q 2 hrs.Latest temp 96.5 Parish hugger continuous.No acute distress noted.Report given to day shift for rajeev.
--- NOTE | 2019-11-07 07:40 | NUR ---
ICU/RN PT IS INTUBATED ON THE VENT AC MODE,FIO2-50%,PEEP-10. SAT O2-98%.SEDATED WITH DIPRIVAN .PT HAS PICC LINE ,MIDLINE,AND A-LINE . G-TUBE CLAMPED.F/C DRAINING WITH YELLOW URINE.PT IS OBESE ,GENERALIZED EDEMA PRESENT.T-96.7 .HEATING BLANKET ON.SUCTION PROVIDED.REPOSITION FOR COMFORT.
[2019-11-07] MEDS: PANTOPRAZOLE 40 MG VIAL IV SCH (08:04)
[2019-11-07] MEDS: ISOSORBIDE DINITRATE (20MG) 20 MG TABLET GT SCH ×2 (08:05→16:54)
[2019-11-07] MEDS: CLOTRIMAZOLE 1% 15 GM TUBE TP SCH ×2 (08:06→16:54)
[2019-11-07] MEDS: APIXABAN 5 MG TABLET GT SCH ×2 (08:06→16:55)
--- NOTE | 2019-11-07 08:30 | NUR ---
ICU/RN ABG DONE .MD NOTIFIED.PEEP DECREASED TO 5.SAT O2-97%. DUE MEDS ARE GIVEN ORDERED.
[2019-11-07 08:33] LABS: ABG BASE EXCESS 14.9 mmol/L; ABG PCO2 48.6 mmHg (35.0-45.0); ABG PH 7.527 (7.350-7.450); ABG PO2 104.1 mmHg (75.0-100.0); AaDO2 197.7 mmHg; COHb 0.3 % (0.5-1.5); MetHb 0.3 % (0.0-1.5); O2Hb 97.4 % (94.0-97.0); SITE, ABG A-Line; VENT MODE, BG AC 12 400 +10 50%
[2019-11-07] MEDS ORDERED: DEXTROSE 50%-WATER 50 ML DISP.SYRIN IV PRN (10:00)
[2019-11-07] MEDS ORDERED: GLUCERNA 1.2 1,000 ML BOTTLE NG PRN (10:00)
[2019-11-07] MEDS: CEFEPIME 2 GM in IV D5W 100 ML IV SCH ×2 (10:24→22:35)
[2019-11-07] MEDS: BLOOD SUGAR DIAGNOSTIC 1 EACH STRIP IN SCH ×3 (11:06→23:19)
[2019-11-07] MEDS: INSULIN REGULAR, HUMAN 100 UNIT/ML 3 ML VIAL SQ PRN ×2 (11:30→23:22)
[2019-11-07] MEDS: GLUCERNA 1.2 1,000 ML BOTTLE NG PRN (11:58)
--- NOTE | 2019-11-07 20:00 | NUR ---
Patient care endorsed to Joanna CHIANG for continuity of care.
--- NOTE | 2019-11-07 20:00 | NUR ---
CYCLING INSTRUCTOR NOTE RECEIVED PATIENT AROUND THIS TIME. A&O X1, OPENS EYES. VENT DEPENDANT. BREATHING IS EVEN AND NON LABORED. ON GT FEEDING GLUCERNA RUNNING AT 20 ML/HR. ON PAVON CATH, URINE IS YELLOW IN COLOR WITH MINIMAL SEDIMENTS NOTED. IV SITES ON PHIL PICC, VOLODYMYR ML, BOTH CLEAN, DRY, AND PATENT. NS IS RUNNING AT 125 ML/HR FOR HYDRATION. PATIENT ON RIGHT WRIST A-LINE PRESSURE MONITORING. IN NO APPARENT DISTRESS NOTED AT THIS TIME. WILL CONTINUE TO MONITOR.
[2019-11-07] MEDS: FLUCONAZOLE (100 MG) 100 MG TABLET PO SCH (20:33)
[2019-11-08] VITALS (24 sets, daily range): BP systolic 103–133; BP diastolic 57–89
[2019-11-08] MEDS: IV NS 0.9% 1,000 ML IV PRN ×2 (02:18→08:37)
[2019-11-08] MEDS: methylPREDNISolone SOD SUCC 40 MG/ML VIAL IV SCH ×3 (04:42→20:31)
[2019-11-08] MEDS: VALPROATE 500 MG in IV NS 0.9% 100 ML IV SCH ×3 (04:42→20:31)
[2019-11-08] MEDS: BLOOD SUGAR DIAGNOSTIC 1 EACH STRIP IN SCH ×4 (05:35→23:08)
[2019-11-08] MEDS: INSULIN REGULAR, HUMAN 100 UNIT/ML 3 ML VIAL SQ PRN ×4 (05:36→23:17)
--- NOTE | 2019-11-08 06:50 | NUR ---
LICENSED DISPENSING OPTICIAN NOTE PATIENT REMAINED STABLE THROUGHOUT THE NIGHT. NO SIGNIFICANT CHANGES NOTED. ALL DUE MEDS GIVEN ORDERED AND TOLERATED WELL. WILL ENDORSE TO AM SHIFT RN FOR CONTINUATION OF CARE.
--- NOTE | 2019-11-08 07:35 | NUR ---
FACILITY COORDINATOR NOTES PATIENT ON VENT, ABLE TO OPEN HER EYES WHEN TOUCHED AND NAME CALLED. NO SOB OR DISCOMFORT NOTED AT THIS TIME NO ISOLATION. PATIENT HAD LEFT UPPER ARM MIDLINE AND RIGHT UPPER ARM PICC LINE BOTH PATENT. NS 125ML/ HR IS RUNNING AT THIS TIME. PATIENT HAS PAVON (100CC) AND GTUBE FEEDING IS RUNNING AT 20 ML/HR. NO RESIDUAL NOTED AT GT SITE. PATIENT IS ON BEAR HUG MACHINE. WILL CONTINUE TO MONITOR PATIENT.
--- NOTE | 2019-11-08 07:45 | NUR ---
CASE FILLER NOTES RECEIVED A CALL FROM RADIOLOGY REGARDING THE CHEST XRAY RESULT. TUBE IS NOT IN PROPER POSITION. NO SOB OR DISCOMFORT NOTED WITH THE PATIENT. OT SAT IS 98%. WILL INFORM AUTOMOTIVE DESIGN DRAFTER FOR FURTHER INTERVENTIONS.
[2019-11-08 08:22] LABS: ABG BASE EXCESS 10.4 mmol/L; ABG OXYGEN SATURATION 97.4 % (92.0-98.5); ABG PCO2 49.5 mmHg (35.0-45.0); ABG PH 7.472 (7.350-7.450); ABG PO2 97.2 mmHg (75.0-100.0); AaDO2 167.3 mmHg; COHb 0.5 % (0.5-1.5); MetHb 0.3 % (0.0-1.5); O2Hb 96.6 % (94.0-97.0); SITE, ABG A-Line; VENT MODE, BG AC 12 400 +5 45%
[2019-11-08] MEDS: APIXABAN 5 MG TABLET GT SCH ×2 (08:52→16:51)
[2019-11-08] MEDS: PANTOPRAZOLE 40 MG VIAL IV SCH (08:56)
[2019-11-08] MEDS: ISOSORBIDE DINITRATE (20MG) 20 MG TABLET GT SCH ×2 (08:56→17:20)
[2019-11-08] MEDS: CLOTRIMAZOLE 1% 15 GM TUBE TP SCH ×2 (08:56→17:20)
[2019-11-08] MEDS ORDERED: FUROSEMIDE 100 MG/10 ML VIAL IV ONE (09:00)
[2019-11-08 09:50] LABS: BASOPHILS % (AUTO) 0.1 % (0.0-2.0); HEMATOCRIT 30 % (33-45); HEMOGLOBIN 9.7 g/dL (11.5-14.8); LYMPHOCYTES # (AUTO) 0.2 /CMM (0.8-4.8); LYMPHOCYTES % (AUTO) 4.7 % (20.0-44.0); MEAN CORPUSCULAR HGB CONC 33 g/dl (31.0-36.0); MEAN CORPUSCULAR VOLUME 92 fL (82-100); MONOCYTES # (AUTO) 0.2 /CMM (0.1-1.30); NEUTROPHILS % (AUTO) 90.2 % (43.0-81.0); PLATELET COUNT (AUTO) 76 /CMM (150-450); RED BLOOD CELL COUNT(AUTO) 3.26 MIL/uL (4.0-5.2); WHITE BLOOD COUNT (AUTO) 4.4 K/uL (4.3-11.0)
[2019-11-08 10:12] LABS: ALANINE AMINOTRANSFERASE 18 U/L (12-78); ALBUMIN 2.1 g/dL (3.4-5.0); ALKALINE PHOSPHATASE 75 U/L (46-116); ASPARTATE AMINOTRANSFERASE 44 U/L (15-37); BILIRUBIN,TOTAL 1.8 mg/dL (0.2-1.0); CALCIUM, SERUM 8.4 mg/dL (8.5-10.1); CARBON DIOXIDE 39 mmol/L (21-32); CHLORIDE 93 mmol/L (98-107); CREATININE 1.5 mg/dL (0.6-1.3); GLUCOSE 163 mg/dL (74-106); MAGNESIUM 2.9 mg/dL (1.8-2.4); PHOSPHORUS 4.5 mg/dL (2.5-4.9); POTASSIUM 4.2 mmol/L (3.5-5.1); SODIUM SERUM 133 mmol/L (136-145); TOTAL PROTEIN, SERUM 5.8 g/dL (6.4-8.2); UREA NITROGEN, BLOOD 71 mg/dL (7-18)
[2019-11-08] MEDS: CEFEPIME 2 GM in IV D5W 100 ML IV SCH ×2 (10:24→22:53)
--- NOTE | 2019-11-08 12:26 | NUR ---
FIRST BREAKER FEEDER NOTES INFORMED DR MCCRAY ABOUT THE MORNING CHEST XRAY, THE RT TUBE POSITION.
--- NOTE | 2019-11-08 12:30 | NUR ---
MILL BEAM FITTER NOTES CALLED PHARMACY TO VERIFY IF IT IS OK TO GIVE DEPACON WITH THE VALPROIC ACID LEVEL OF 61. PER PHARMACY IT IS OK TO ADMINISTER THE MEDICATION.
--- NOTE | 2019-11-08 12:56 | NUR ---
TOBACCO SIEVE OPERATOR NOTES INFORMED DR MCCRAY ABOUT THE X RAY. PER DR MCCRAY NO INTERVENTION NEEDED REGARDING ET TUBE.
--- NOTE | 2019-11-08 15:24 | NUR ---
ADMINISTRATIVE ASST ( GT FEEDING) PATIENT IS TOLERATING 20 ML/HR WELL. WILL INCREASE THE FEEDING TO 30 ML/HR TILL IT REACHES THE GOAL 40 ML/HR. FEEDING TUBING AND BOTTLE CHANGED.
[2019-11-08] MEDS: GLUCERNA 1.2 1,000 ML BOTTLE NG PRN (15:25)
--- NOTE | 2019-11-08 16:27 | NUR ---
BUTTONHOLE FACER NOTES RIGHT UPPER ARM PICC LINE DRESSING HAS CHANGED. PICC LINE PATENT AND FLUSHED WELL WITH NORMAL SALINE ON 3 LUMENS.
--- NOTE | 2019-11-08 19:15 | NUR ---
PARTS SALESPERSON NOTE RECEIVED PATIENT AROUND THIS TIME. A&O X1, OPENS EYES. VENT DEPENDANT. BREATHING IS EVEN AND NON LABORED. ON GT FEEDING GLUCERNA RUNNING AT 30 ML/HR. ON PAVON CATH, URINE IS YELLOW IN COLOR WITH MINIMAL SEDIMENTS NOTED. IV SITES ON PHIL PICC, VOLODYMYR ML, BOTH CLEAN, DRY, AND PATENT. PATIENT ON RIGHT WRIST A-LINE PRESSURE MONITORING. IN NO APPARENT DISTRESS NOTED AT THIS TIME. WILL CONTINUE TO MONITOR.
--- NOTE | 2019-11-08 19:17 | NUR ---
BLAST FURNACE CHECKER NOTES (CLOSING) PATIENT IN BED, COMFORTABLE AND NO SIGNS OF SOB. ALL NEEDS ATTENDED. NO MAJOR CHANGES DURING THE SHIFT. CALL LIGHT WITHIN REACH, BED AT THE LOWEST POSITION LOCKED, REPORT GIVEN TO LEAD QUALITY TECHNICIAN RN FOR BRENDA.
[2019-11-08] MEDS: FLUCONAZOLE (100 MG) 100 MG TABLET PO SCH (20:31)
--- NOTE | 2019-11-08 23:00 | NUR ---
ORGAN TUNER NOTE NOTED PATIENT MINIMAL WEEPING FROM BILATERAL UPPER EXTREMITIES. PARTIAL BED LINENS CHANGED. WILL CONTINUE TO MONITOR.
[2019-11-09] VITALS (24 sets, daily range): BP systolic 109–145; BP diastolic 46–96
[2019-11-09] MEDS: VALPROATE 500 MG in IV NS 0.9% 100 ML IV SCH ×2 (04:29→14:05)
[2019-11-09] MEDS: methylPREDNISolone SOD SUCC 40 MG/ML VIAL IV SCH ×3 (04:29→21:11)
[2019-11-09 04:50] LABS: HEMATOCRIT 31 % (33-45); HEMOGLOBIN 10.4 g/dL (11.5-14.8); LYMPHOCYTES # (AUTO) 0.2 /CMM (0.8-4.8); LYMPHOCYTES % (AUTO) 4.3 % (20.0-44.0); MEAN CORPUSCULAR HGB CONC 33 g/dl (31.0-36.0); MEAN CORPUSCULAR VOLUME 91 fL (82-100); MONOCYTES # (AUTO) 0.2 /CMM (0.1-1.30); MONOCYTES % (AUTO) 4.9 % (2.0-12.0); NEUTROPHILS # (AUTO) 4.5 /CMM (1.8-8.9); NEUTROPHILS % (AUTO) 89.8 % (43.0-81.0); PLATELET COUNT (AUTO) 138 /CMM (150-450); RED BLOOD CELL COUNT(AUTO) 3.44 MIL/uL (4.0-5.2); WHITE BLOOD COUNT (AUTO) 5.1 K/uL (4.3-11.0)
[2019-11-09 05:25] LABS: ALANINE AMINOTRANSFERASE 17 U/L (12-78); ALBUMIN 2.2 g/dL (3.4-5.0); ALKALINE PHOSPHATASE 77 U/L (46-116); ASPARTATE AMINOTRANSFERASE 45 U/L (15-37); BILIRUBIN,TOTAL 1.9 mg/dL (0.2-1.0); CALCIUM, SERUM 8.4 mg/dL (8.5-10.1); CARBON DIOXIDE 37 mmol/L (21-32); CHLORIDE 94 mmol/L (98-107); CREATININE 1.6 mg/dL (0.6-1.3); GLUCOSE 165 mg/dL (74-106); MAGNESIUM 2.9 mg/dL (1.8-2.4); PHOSPHORUS 4.5 mg/dL (2.5-4.9); POTASSIUM 3.9 mmol/L (3.5-5.1); SODIUM SERUM 135 mmol/L (136-145); TOTAL PROTEIN, SERUM 6.2 g/dL (6.4-8.2); UREA NITROGEN, BLOOD 71 mg/dL (7-18)
[2019-11-09] MEDS: BLOOD SUGAR DIAGNOSTIC 1 EACH STRIP IN SCH ×3 (05:32→17:34)
[2019-11-09] MEDS: INSULIN REGULAR, HUMAN 100 UNIT/ML 3 ML VIAL SQ PRN ×3 (05:33→17:35)
--- NOTE | 2019-11-09 06:46 | NUR ---
FILLER BLENDER NOTE PATIENT REMAINED STABLE THROUGHOUT THE NIGHT. ALL DUE MEDS GIVEN ORDERED AND TOLERATED WELL. WOUND CARE RENDERED. REPOSITIONED Q2H. WILL ENDORSE TO AM SHIFT RN FOR CONTINUATION OF CARE.
--- NOTE | 2019-11-09 07:05 | NUR ---
RN NOTE RECEIVED PT ON BED , INTUBATED,TOLERATING VENT SETTING WELL, VSS STABLE, OPEN EYES AT TIMES , DOES NOTE FOLLOW COMMAND, BREATHING IS EVEN AND NON LABORED. ON GT FEEDING GLUCERNA RUNNING AT 30 ML/HR. PAVON CATH DRINING TO GRAVITY, URINE IS YELLOW IN COLOR WITH MINIMAL SEDIMENTS NOTED. IV SITES ON PHIL PICC , VOLODYMYR ML AND A-LINE SITE CLEAN, DRY AND INTACT, SR UP x3, CALL LIGHT WITHIN EASY REACH, BED LOCKED AND IN LOWEST POSITION, NO APPARENT DISTRESS NOTED AT THIS TIME. WILL CONTINUE TO MONITOR.
[2019-11-09 08:08] LABS: ABG BASE EXCESS 12.9 mmol/L; ABG OXYGEN SATURATION 96.8 % (92.0-98.5); ABG PCO2 55.4 mmHg (35.0-45.0); ABG PH 7.462 (7.350-7.450); ABG PO2 90.7 mmHg (75.0-100.0); AaDO2 167.1 mmHg; COHb 0.3 % (0.5-1.5); MetHb 0.1 % (0.0-1.5); O2Hb 96.4 % (94.0-97.0); SITE, ABG A-Line
[2019-11-09] MEDS: APIXABAN 5 MG TABLET GT SCH ×2 (08:29→16:52)
[2019-11-09] MEDS: PANTOPRAZOLE 40 MG VIAL IV SCH (08:30)
[2019-11-09] MEDS: ISOSORBIDE DINITRATE (20MG) 20 MG TABLET GT SCH ×2 (08:30→16:52)
[2019-11-09] MEDS: CLOTRIMAZOLE 1% 15 GM TUBE TP SCH ×2 (08:34→16:54)
[2019-11-09] MEDS: FUROSEMIDE 100 MG/10 ML VIAL IV SCH ×3 (08:34→16:52)
[2019-11-09] MEDS: CEFEPIME 2 GM in IV D5W 100 ML IV SCH ×2 (10:42→22:48)
--- NOTE | 2019-11-09 15:00 | NUR ---
RN NOTES DR LIU NOTIFED REGARDING VALPROIC ACID =102, NEW ORDER RECEIVED , CONTINUE TO MONITOR .
[2019-11-09] MEDS: GLUCERNA 1.2 1,000 ML BOTTLE NG PRN (16:54)
--- NOTE | 2019-11-09 18:25 | NUR ---
RN NOTE PATIENT REMAINED INTUBATED, VSS STABLE, ALL DUE MEDS GIVEN ORDERED AND TOLERATED WELL. NO SIGNIFICANT CHANGES NOTED ON THIS SHIFT, WILL ENDORSE TO ANIMAL CONTROL SUPERVISOR NURSE FOR CONTINUITY OF CARE .
--- NOTE | 2019-11-09 20:00 | NUR ---
Patient's gtube residuals are 170ml will stop feeding at this time and recheck in 4 hours.
[2019-11-09] MEDS: FLUCONAZOLE (100 MG) 100 MG TABLET PO SCH (21:11)
[2019-11-10] VITALS (24 sets, daily range): BP systolic 106–128; BP diastolic 45–91
--- NOTE | 2019-11-10 | NUR ---
rechecked residuals and patient has 70ml. will restart feeding and recheck residuals in 4 hours.
[2019-11-10] MEDS: BLOOD SUGAR DIAGNOSTIC 1 EACH STRIP IN SCH ×4 (00:09→17:20)
[2019-11-10] MEDS: INSULIN REGULAR, HUMAN 100 UNIT/ML 3 ML VIAL SQ PRN ×4 (00:11→17:20)
--- NOTE | 2019-11-10 04:00 | NUR ---
rechecked residuals and there is 80ml. Will continue feeding and endorse to AM RN.
[2019-11-10 04:22] LABS: BASOPHILS % (AUTO) 0.1 % (0.0-2.0); HEMATOCRIT 32 % (33-45); HEMOGLOBIN 10.5 g/dL (11.5-14.8); LYMPHOCYTES # (AUTO) 0.2 /CMM (0.8-4.8); LYMPHOCYTES % (AUTO) 2.6 % (20.0-44.0); MEAN CORPUSCULAR HGB CONC 33 g/dl (31.0-36.0); MEAN CORPUSCULAR VOLUME 92 fL (82-100); MONOCYTES # (AUTO) 0.3 /CMM (0.1-1.30); MONOCYTES % (AUTO) 4.9 % (2.0-12.0); NEUTROPHILS % (AUTO) 92.4 % (43.0-81.0); RED BLOOD CELL COUNT(AUTO) 3.49 MIL/uL (4.0-5.2); WHITE BLOOD COUNT (AUTO) 6.5 K/uL (4.3-11.0)
[2019-11-10] MEDS: methylPREDNISolone SOD SUCC 40 MG/ML VIAL IV SCH ×3 (04:26→21:29)
[2019-11-10 04:32] LABS: ALANINE AMINOTRANSFERASE 21 U/L (12-78); ALBUMIN 2.2 g/dL (3.4-5.0); ALKALINE PHOSPHATASE 74 U/L (46-116); ASPARTATE AMINOTRANSFERASE 48 U/L (15-37); BILIRUBIN,TOTAL 1.6 mg/dL (0.2-1.0); CALCIUM, SERUM 8.8 mg/dL (8.5-10.1); CHLORIDE 96 mmol/L (98-107); CREATININE 1.5 mg/dL (0.6-1.3); GLUCOSE 176 mg/dL (74-106); MAGNESIUM 2.8 mg/dL (1.8-2.4); PHOSPHORUS 3.5 mg/dL (2.5-4.9); SODIUM SERUM 139 mmol/L (136-145); TOTAL PROTEIN, SERUM 6.1 g/dL (6.4-8.2); UREA NITROGEN, BLOOD 75 mg/dL (7-18)
[2019-11-10 04:45] LABS: PLATELET COUNT (AUTO) 53 /CMM (150-450)
[2019-11-10 05:02] LABS: CARBON DIOXIDE 41 mmol/L (21-32); POTASSIUM 2.8 mmol/L (3.5-5.1)
[2019-11-10 05:26] LABS: VALPROIC ACID 101 ug/mL (50-100)
[2019-11-10] MEDS: POTASSIUM CL. PREMIX PERIPHER. 50 ML IV SCH ×4 (06:20→09:43)
--- NOTE | 2019-11-10 07:03 | NUR ---
RN NOTE RECEIVED PT ON BED , INTUBATED,TOLERATING VENT SETTING WELL, VSS STABLE, OPEN EYES AT TIMES , DOES NOT FOLLOW COMMAND, BREATHING IS EVEN AND NON LABORED. ON GT FEEDING GLUCERNA RUNNING AT 40 ML/HR. PAVON CATH DRINING TO GRAVITY , IV SITES ON PHIL PICC , VOLODYMYR MIDLINE AND R ARM A-LINE SITE CLEAN, DRY AND INTACT, SR UP x3, CALL LIGHT WITHIN EASY REACH, BED LOCKED AND IN LOWEST POSITION, CALL LIGHT WITHIN EASY REACH, BED LOCKED AND IN LOWEST POSITION, WILL CONTINUE TO MONITOR.
[2019-11-10] MEDS: ISOSORBIDE DINITRATE (20MG) 20 MG TABLET GT SCH ×2 (08:22→16:31)
[2019-11-10 08:25] LABS: ABG BASE EXCESS 14.4 mmol/L; ABG OXYGEN SATURATION 95.4 % (92.0-98.5); ABG PCO2 52.2 mmHg (35.0-45.0); ABG PH 7.498 (7.350-7.450); ABG PO2 76.6 mmHg (75.0-100.0); AaDO2 148.6 mmHg; COHb 0.4 % (0.5-1.5); MetHb 0.3 % (0.0-1.5); O2Hb 94.7 % (94.0-97.0); SITE, ABG A-Line; VENT MODE, BG AC 12 400 40% +5
[2019-11-10] MEDS: CLOTRIMAZOLE 1% 15 GM TUBE TP SCH ×2 (08:26→16:31)
[2019-11-10] MEDS: APIXABAN 5 MG TABLET GT SCH (09:00)
[2019-11-10] MEDS: POTASSIUM CHLORIDE 20 MEQ POWDER PACKET NG SCH ×2 (09:45→10:51)
[2019-11-10] MEDS: CEFEPIME 2 GM in IV D5W 100 ML IV SCH ×2 (11:13→23:22)
[2019-11-10] MEDS: GLUCERNA 1.2 1,000 ML BOTTLE NG PRN (15:30)
--- NOTE | 2019-11-10 18:36 | NUR ---
RN NOTES TF LEFT AT 30CC/HR , DUE TO HIGH RESIDUAL ON THIS SHIFT, PT REMAINS INTUBATED, AND ON VENT, TOLERATING SETTING WELL, NO DISTRESS NOTED, SR UP x3, CALL LIGHT WITHIN EASY REACH, BED LOCKED AND IN LOWEST POSITION, WILL ENDORSE TO PETROLEUM REFINING EQUIPMENT OPERATOR NURSE FOR CONTINUITY OF CARE .
[2019-11-10] MEDS: FLUCONAZOLE (100 MG) 100 MG TABLET PO SCH (21:28)
[2019-11-11] VITALS (24 sets, daily range): BP systolic 95–162; BP diastolic 48–95
[2019-11-11] MEDS: BLOOD SUGAR DIAGNOSTIC 1 EACH STRIP IN SCH ×4 (00:16→18:33)
[2019-11-11] MEDS: INSULIN REGULAR, HUMAN 100 UNIT/ML 3 ML VIAL SQ PRN ×4 (00:18→18:34)
[2019-11-11] MEDS: methylPREDNISolone SOD SUCC 40 MG/ML VIAL IV SCH ×3 (05:45→20:33)
--- NOTE | 2019-11-11 06:56 | NUR ---
PATIENT REMAINS IN NO ACUTE DISTRESS IN BED. PATIENT DID NOT HAVE ANY SIGNIFICANT CHANGE IN CONDITION DURING SHIFT. ALL NEEDS MET, ALL ORDERS CARRIED OUT. PATIENT TOLERATED TUBE FEEDING FAIR WITH RESIDUALS AT 2000-150ML, 0000-60ML, 0400-70ML. PATIENT CONTINUES TO WEEP FROM ALL EXTREMITIES. ALL IV AND ALINES ARE CLEAN DRY INTACT AND PATENT. ALL SAFETY MEASURES ENSURED AND CARRIED OUT. WILL ENDORSE TO AM RN FOR CONTINUITY OF CARE.
--- NOTE | 2019-11-11 07:30 | NUR ---
RN OPENING NOTE Received patient in bed asleep appears calm and relaxed. No signs of distress. On [facility] vent settings as follows: AC 12 TV 400 FIO2 40% PEEP 5 tolerating well. Patient can open eyes but no response. Tele reading Afib @ 60-70 bpm. Pepe catheter in place draining clear yellow urine no sediments. Patient has generalized edema and multiple discoloration on both extremities. Has PHIL PICC line, VOLODYMYR midline and AC line on R wrist. Safety measures reinforced. Call light within reach. Bed locked and on lowest position. Will cont to monitor.
[2019-11-11] MEDS: VALPROATE 500 MG in IV NS 0.9% 100 ML IV SCH ×2 (08:49→20:33)
[2019-11-11] MEDS: ISOSORBIDE DINITRATE (20MG) 20 MG TABLET GT SCH ×2 (08:52→16:35)
[2019-11-11] MEDS: CLOTRIMAZOLE 1% 15 GM TUBE TP SCH ×2 (08:53→16:35)
[2019-11-11 09:46] LABS: ABG OXYGEN SATURATION 97.9 % (92.0-98.5); ABG PCO2 58.2 mmHg (35.0-45.0); ABG PH 7.456 (7.350-7.450); ABG PO2 110.5 mmHg (75.0-100.0); AaDO2 107.8 mmHg; COHb 0.4 % (0.5-1.5); MetHb 0.1 % (0.0-1.5); O2Hb 97.4 % (94.0-97.0); SITE, ABG Right Radial; VENT MODE, BG SIMV 4 15 400 40% +5
[2019-11-11 09:55] LABS: BASOPHILS % (AUTO) 0.2 % (0.0-2.0); HEMATOCRIT 32 % (33-45); HEMOGLOBIN 10.5 g/dL (11.5-14.8); LYMPHOCYTES # (AUTO) 0.2 /CMM (0.8-4.8); LYMPHOCYTES % (AUTO) 2.7 % (20.0-44.0); MEAN CORPUSCULAR HGB CONC 33 g/dl (31.0-36.0); MEAN CORPUSCULAR VOLUME 91 fL (82-100); MONOCYTES # (AUTO) 0.3 /CMM (0.1-1.30); MONOCYTES % (AUTO) 4.2 % (2.0-12.0); NEUTROPHILS # (AUTO) 7.4 /CMM (1.8-8.9); NEUTROPHILS % (AUTO) 92.9 % (43.0-81.0)
[2019-11-11 10:02] LABS: ALANINE AMINOTRANSFERASE 23 U/L (12-78); ALBUMIN 2.1 g/dL (3.4-5.0); ALKALINE PHOSPHATASE 69 U/L (46-116); ASPARTATE AMINOTRANSFERASE 51 U/L (15-37); BILIRUBIN,TOTAL 1.5 mg/dL (0.2-1.0); CALCIUM, SERUM 8.9 mg/dL (8.5-10.1); CHLORIDE 98 mmol/L (98-107); CREATININE 1.5 mg/dL (0.6-1.3); GLUCOSE 177 mg/dL (74-106); MAGNESIUM 2.7 mg/dL (1.8-2.4); PHOSPHORUS 3.2 mg/dL (2.5-4.9); POTASSIUM 3.8 mmol/L (3.5-5.1); SODIUM SERUM 141 mmol/L (136-145); UREA NITROGEN, BLOOD 76 mg/dL (7-18)
[2019-11-11 10:03] LABS: PLATELET COUNT (AUTO) 44 /CMM (150-450)
[2019-11-11 10:15] LABS: CARBON DIOXIDE 42 mmol/L (21-32)
--- NOTE | 2019-11-11 10:20 | NUR ---
RN NOTE Critical lab value called by Lab Dept. for Platelet of 44 and CO2 42. Informed Dr. Prakash at bedside no new order. Informed Dr. Gage as well no new order.
[2019-11-11 10:46] LABS: BAND % (MANUAL) 1 % (0.0-5.0); LYMPHOCYTES % (MANUAL) 2 % (16-48); MONOCYTES % (MANUAL) 4 % (0-11.0); NEUTROPHILS % (MANUAL) 93 (42-76)
[2019-11-11] MEDS: CEFEPIME 2 GM in IV D5W 100 ML IV SCH (11:30)
--- NOTE | 2019-11-11 19:15 | NUR ---
RN CLOSING NOTE Patient in bed calm and relaxed. On vent no signs of distress. No major changes this shift. All due meds given. Vital signs within normal limits. Kept clean and dry. Cont to monitor TF tolerance, ATB and respiratory closely. Safety measures reinforced. Call light within reach. Bed locked and on lowest position. Endorsed to security shift manager nurse for rajeev..
--- NOTE | 2019-11-11 19:45 | NUR ---
RN NOTES PATIENT IS ORALLY INTUBATED WITH ETT 7.5 POSITION AT 23 CM AT LIPLINE. WITH VENT SETTING AC 12 TV 400 FIO2 40% PEEP 5 PT EYES IS OPEN NOT TRACKING. NOT FOLLOWING COMMAND. NO ACUTE RESP. DISTRESS NOTED. CALMED. NO SEDATION NEEDED. TELE MONITOR REVEALS AFIB. IV SITE ON VOLODYMYR ML, PHIL PICC LINE AND RIGHT WRIST WITH A- LINE INTACT NO LEAKING, LEVELED AND CALIBRATED. GENERALIZED EDEMA NOTED. GTF WITH 70 CC RESIDUAL NOTED WILL CLOSELY MONITOR. PATIENT PAVON CATH INTACT DRAINED VIA GRAVITY KEPT OFF FROM THE FLOOR. KEPT PT CLEAN AND DRY.
[2019-11-11] MEDS: FLUCONAZOLE (100 MG) 100 MG TABLET PO SCH (20:36)
[2019-11-12] VITALS (15 sets, daily range): BP systolic 95–149; BP diastolic 48–75
[2019-11-12] MEDS: BLOOD SUGAR DIAGNOSTIC 1 EACH STRIP IN SCH ×3 (00:04→11:57)
[2019-11-12] MEDS: INSULIN REGULAR, HUMAN 100 UNIT/ML 3 ML VIAL SQ PRN ×3 (00:05→12:00)
[2019-11-12] MEDS: GLUCERNA 1.2 1,000 ML BOTTLE NG PRN (04:26)
[2019-11-12 04:46] LABS: HEMATOCRIT 34 % (33-45); HEMOGLOBIN 10.7 g/dL (11.5-14.8); LYMPHOCYTES # (AUTO) 0.2 /CMM (0.8-4.8); LYMPHOCYTES % (AUTO) 2.6 % (20.0-44.0); MEAN CORPUSCULAR HGB CONC 32 g/dl (31.0-36.0); MEAN CORPUSCULAR VOLUME 93 fL (82-100); MONOCYTES # (AUTO) 0.3 /CMM (0.1-1.30); NEUTROPHILS # (AUTO) 8.6 /CMM (1.8-8.9); NEUTROPHILS % (AUTO) 94.4 % (43.0-81.0); RED BLOOD CELL COUNT(AUTO) 3.63 MIL/uL (4.0-5.2); WHITE BLOOD COUNT (AUTO) 9.1 K/uL (4.3-11.0)
[2019-11-12 05:08] LABS: ALANINE AMINOTRANSFERASE 27 U/L (12-78); ALBUMIN 2.3 g/dL (3.4-5.0); ALKALINE PHOSPHATASE 80 U/L (46-116); ASPARTATE AMINOTRANSFERASE 59 U/L (15-37); BILIRUBIN,TOTAL 1.4 mg/dL (0.2-1.0); CALCIUM, SERUM 9.3 mg/dL (8.5-10.1); CHLORIDE 98 mmol/L (98-107); CREATININE 1.4 mg/dL (0.6-1.3); GLUCOSE 151 mg/dL (74-106); MAGNESIUM 2.8 mg/dL (1.8-2.4); PHOSPHORUS 3.7 mg/dL (2.5-4.9); SODIUM SERUM 143 mmol/L (136-145); TOTAL PROTEIN, SERUM 6.4 g/dL (6.4-8.2)
[2019-11-12 05:18] LABS: PLATELET COUNT (AUTO) 40 /CMM (150-450)
[2019-11-12 05:31] LABS: CARBON DIOXIDE 42 mmol/L (21-32); UREA NITROGEN, BLOOD 83 mg/dL (7-18)
[2019-11-12 05:36] LABS: LYMPHOCYTES % (MANUAL) 1 % (16-48); MONOCYTES % (MANUAL) 2 % (0-11.0); NEUTROPHILS % (MANUAL) 97 (42-76)
[2019-11-12] MEDS: methylPREDNISolone SOD SUCC 40 MG/ML VIAL IV SCH ×2 (05:44→12:00)
--- NOTE | 2019-11-12 07:15 | NUR ---
RN INITIAL NOTES RECEIVED PT INTUBATED, ON VENT. NO RESPIRATORY DISTRESS NOTED. NO SOB NOTED. HOB ELEVATED. NO SIGNS OF PAIN NOTED. PT OPEN EYES, MOT FOLLOWING COMMANDS. GT IN PLACE, ON TUBE FEEDING. WILL MONITOR RESIDUAL . A LINE , PHIL PICC IN PLACE. FC IN PLACE. BLE ELEVATED. WILL MONITOR
--- NOTE | 2019-11-12 07:25 | NUR ---
RN NOTES PATIENT REMAINED STABLE NO SIGNIFICANT CHANGES THROUGHOUT THE SHIFT. AFEBRILE. VSS ON MIAH READING. ETT AND VENT SETTING TOLERATED WELL. BED BATH TOLERATED WITHOUT RESPIRATORY DISTRESS. ALL IV LINES ARE INTACT AND PATENT WITH GOOD BLOOD RETURN. PT LEFT CLEAN AND DRY.
[2019-11-12] MEDS: ISOSORBIDE DINITRATE (20MG) 20 MG TABLET GT SCH (08:33)
[2019-11-12] MEDS: CLOTRIMAZOLE 1% 15 GM TUBE TP SCH (08:33)
[2019-11-12 08:41] LABS: ABG BASE EXCESS 13.9 mmol/L; ABG OXYGEN SATURATION 97.4 % (92.0-98.5); ABG PCO2 63.1 mmHg (35.0-45.0); ABG PH 7.426 (7.350-7.450); ABG PO2 100.3 mmHg (75.0-100.0); AaDO2 112.3 mmHg; COHb 0.5 % (0.5-1.5); MetHb 0.3 % (0.0-1.5); O2Hb 96.6 % (94.0-97.0); SITE, ABG A-Line
[2019-11-12] MEDS: VALPROATE 500 MG in IV NS 0.9% 100 ML IV SCH (09:29)
[2019-11-12] MEDS ORDERED: LORAZEPAM INJ 2 MG/ML VIAL IV PRN (14:00)
[2019-11-12] MEDS ORDERED: DC PROPOFOL WHEN EXTUBATED XX PRN (14:00)
[2019-11-12] MEDS ORDERED: MORPHINE SULFATE INJ 2 MG/ML DISP.SYRIN IV PRN (14:00)
--- NOTE | 2019-11-12 14:15 | NUR ---
RN NOTES PATIENT TRANSFERRED FROM [facility] ON COMFORT CARE. PATIENT ON O2-5LNC, SHALLOW BREATH, R-16 AT THIS TIME, BP -70/35. PATIENT TOTAL CARE, REMOVED GT FEEDING, AND IV MEDICATION. F/C DRAINING LIGHT YELLOW OUTPUT. CALL LIGHT WITHIN TO REACH. CONTINUED MONITORING.
--- NOTE | 2019-11-12 14:20 | NUR ---
RN NOTES 1400 PT EXTUBATED ORDERED. PLACED ON VIA NC AT 5LPM. HOB ELEVATED. ARTERIAL LINE REMOVED. PT NOW ON COMFORT MEASURES. WILL MONITOR 1410 PT TRANSFERRED TO 206. REPORT GIVEN TO MARIIA NUÑEZ. TOOK OVER PT'S CARE. FAMILY NOTIFIED OF TRANSFER
--- NOTE | 2019-11-12 16:05 | NUR ---
RN DOCUMENTED AND TIME OF 11/12/2019. PATIENT WAS PROVIDED COMFORT MEASURE BY DR SERRANO. PATIENT FAMILY WITH THE PATIENT AND PATIENT STARTED NOT TO BREATHING.PATIENT FOUND UNRESPONSIVE IN THE BED AT 1605., NO RESPIRATION, NO PULSE, NO HEART RATE OR BREATH SOUNDS AUSCULTATED, NO CODE CALLED PER PER ADVANCE DIRECTIVE, AND SIGNED DNR ORDER IN CHART. PRONOUNCED BY ZACH . NOTIFIED [facility] OR LIVESTOCK TENANT FARMER CIRILO Haque RN, AND [facility]. POST MORTEM CARE DONE ALSO FAMILY DRESS PATIENT.PATIENT HAS NO BELONGING. PATIENT WILL PROVIDE MORTUARY OF CLARITY , AND CARINATION AND WILLING TO WINDOWS SERVER SUPPORT TECHNICIAN BODY FROM ROOM 206.
== END 2019-11-12 16:05 | disposition expired | DRG 870 ==
LOC: ER 19:36 → ICU 21:52 → TELE2 11-12 14:13
PROVIDERS: ADMIT Hospitalist; ATTEND Internal Medicine
PROC: 5A09457 Assistance with Respiratory Ventilation, 24-96 Consecutive Hours, Continuous Positive Airway Pressure (ICD-10-PCS; principal; 2019-11-03)
PROC: 05HY33Z Insertion of Infusion Device into Upper Vein, Percutaneous Approach (ICD-10-PCS; 2019-11-03)
PROC: 5A1955Z Respiratory Ventilation, Greater than 96 Consecutive Hours (ICD-10-PCS; 2019-11-04)
PROC: 0BH17EZ Insertion of Endotracheal Airway into Trachea, Via Natural or Artificial Opening (ICD-10-PCS; 2019-11-04)
PROC: 02HV33Z Insertion of Infusion Device into Superior Vena Cava, Percutaneous Approach (ICD-10-PCS; 2019-11-04)
PROC: B548ZZA Ultrasonography of Superior Vena Cava, Guidance (ICD-10-PCS; 2019-11-04)
DX: A41.9 Sepsis, unspecified organism (principal); J96.21 Acute and chronic respiratory failure with hypoxia; N17.0 Acute kidney failure with tubular necrosis; I21.A1 Myocardial infarction type 2; N17.1 Acute kidney failure with acute cortical necrosis; G92 Toxic encephalopathy; J18.9 Pneumonia, unspecified organism; J96.22 Acute and chronic respiratory failure with hypercapnia; R65.21 Severe sepsis with septic shock; J98.11 Atelectasis; J90 Pleural effusion, not elsewhere classified; E22.2 Syndrome of inappropriate secretion of antidiuretic hormone; E66.2 Morbid (severe) obesity with alveolar hypoventilation; G93.1 Anoxic brain damage, not elsewhere classified; B37.49 Other urogenital candidiasis; F03.90 Unspecified dementia, unspecified severity, without behavioral disturbance, psychotic disturbance, mood disturbance, and anxiety; Z86.73 Personal history of transient ischemic attack (TIA), and cerebral infarction without residual deficits; I48.91 Unspecified atrial fibrillation; I10 Essential (primary) hypertension; Z90.49 Acquired absence of other specified parts of digestive tract; E86.0 Dehydration; I11.0 Hypertensive heart disease with heart failure; I50.9 Heart failure, unspecified; Y95 Nosocomial condition; F09 Unspecified mental disorder due to known physiological condition; E87.5 Hyperkalemia; G40.909 Epilepsy, unspecified, not intractable, without status epilepticus; E11.9 Type 2 diabetes mellitus without complications; D69.6 Thrombocytopenia, unspecified; D64.9 Anemia, unspecified; Z68.38 Body mass index [BMI] 38.0-38.9, adult; Z79.01 Long term (current) use of anticoagulants; G93.89 Other specified disorders of brain
CPT/HCPCS: 31720; 36415; 36600; 70450-TC; 71045-TC; 76700-TC; 76770-TC; 80048-TC; 80053-TC; 80061-TC; 80076-TC; 80164-TC; 81000-TC; 82550-TC; 82570-TC; 82803-TC; 82962-TC; 83605-TC; 83735-TC; 83880; 83935-TC; 83970; 84100-TC; 84132-TC; 84155-TC; 84300-TC; 84443-TC; 84478-TC; 84484-TC; 84550-TC; 85025-TC; 85730-TC; 87040-TC; 87081-TC; 87086-TC; 93307-TC; 94002-TC; 94003-TC; 94760-TC; 94762-TC; 94799-TC; 95819-TC; 99082-TC; A4216; A6403; C1751; C9113; G0378; J0171; J0461; J0692; J1100; J1815; J1940; J2060; J2920; J3480; J3490; J7030; J7040; J7050; J7060; U0003-CS